=== PATIENT | female | born 1985 | race Caucasian/White ===

== ENCOUNTER 2016-12-10 19:14 | Emergency (ER) | payer BC ==
--- NOTE | 2016-12-10 20:13 | UC ---
Throat Pain/Nasal He HPI - HPI Summary HPI Summary: Patient presents with CC of feeling as though there is a hole in the right tonsil. She notes to tonsillar swelling, difficulty swallowing and pain x 2 days. She also states she saw some white discharge from the right tonsil today, but gargled with water and was able to clean it out effectively. Other symptoms include light drainage from the eyes in the morning without conjunctival injection. She is otherwise healthy, takes no medications and denies taking any medication for the pain. - History of Current Complaint Chief Complaint: UCGeneralIllness Stated Complaint: SORE THROAT/TONSIL SWOLLEN Time Seen by Provider: 12/10/16 19:44 Hx Obtained From: Patient Hx Last Menstrual Period: IUD ?: No Onset/Duration: Sudden Onset Severity: Moderate Pain Intensity: 8 Pain Scale Used: 0-10 Numeric Associated Signs & Symptoms: Positive: Dysphagia, FB Sensation - Epiglottits Risk Factors Epiglottis Risk Factors: Negative - Allergies/Home Medications Allergies/Adverse Reactions: Allergies Allergy/AdvReac Type Severity Reaction Status Date / Time Amoxicillin Allergy Hives Verified 12/10/16 19:22 Home Medications: Home Medications Amphetamine/Dextroamph ER(NF) [Adderal XR (NF)] 30 mg DAILY 12/10/16 [History Confirmed 12/10/16] carBAMazepine ER TAB(*) [Tegretol Xr TAB(*)] 200 mg BID 12/10/16 [History Confirmed 12/10/16] PMH/Surg Hx/FS Hx/Imm Hx Previously Healthy: Yes - Surgical History Surgical History: Yes Surgery Procedure, Year, and Place: [place] teeth - Family History Known Family History: Positive: Unknown - Social History Occupation: Employed Full-time Lives: With Family Alcohol Use: Occasionally Substance Use Type: None Smoking Status (MU): Never Smoked Tobacco - Immunization History Most Recent Influenza Vaccination: NONE Most Recent Tetanus Shot: UNK Most Recent Pneumonia Vaccination: N/A Review of Systems Constitutional: Negative Eyes: Negative ENT: Sore Throat, Other - tonsillar enlargement bilaterally Respiratory: Negative Cardiovascular: Negative Motor: Negative Neurovascular: Negative Musculoskeletal: Negative Psychological: Negative All Other Systems Reviewed And Are Negative: Yes Physical Exam Triage Information Reviewed: Yes Appearance: Well-Appearing, No Pain Distress, Well-Nourished Vital Signs: Initial Vital Signs Temp 98.5 F 12/10/16 19:25 Pulse 67 12/10/16 19:25 Resp 18 12/10/16 19:25 BP 142/73 12/10/16 19:25 Pulse Ox 100 12/10/16 19:25 Vital Signs Reviewed: Yes Eye Exam: Normal Eyes: Positive: Conjunctiva Clear ENT: Positive: Pharyngeal erythema, Tonsillar swelling Dental Exam: Normal Neck exam: Normal Neck: Positive: Nontender, No Lymphadenopathy Respiratory Exam: Normal Respiratory: Positive: Chest non-tender, Lungs clear Cardiovascular Exam: Normal Cardiovascular: Positive: RRR Musculoskeletal Exam: Normal Musculoskeletal: Positive: Strength Intact Neurological Exam: Normal Psychological: Positive: Normal Response To Family, Age Appropriate Behavior Skin Exam: Normal Throat Pain/Nasal Course/Dx - Course Course Of Treatment: bilateral tonsillar pain with swelling. worse on right side x 2 days. strep negative. dx as tonsillitis. Patient notes to difficulty swallowing, but denies airway compromise. Prednisone 60mg x 5 days given. Patient OK with discharge and will follow up as needed. - Differential Dx/Diagnosis Differential Diagnosis/HQI/PQRI: Laryngitis, Peritonsillar Abscess, Pharyngitis , Tonsillitis Provider Diagnoses: Tonsillitis Discharge - Discharge Plan Condition: Stable Disposition: HOME Prescriptions: predniSONE TAB* [Deltasone TAB*] 60 mg PO DAILY #5 tab Patient Education Materials: Tonsillitis (ED) Referrals: Marisa Muse NP [Primary Care Provider] - Additional Instructions: Follow up with PCP as needed. Take Prednisone for tonsillitis/pharyngitis as prescribed. How can I manage my symptoms? Use lozenges, ice, soft foods, or popsicles to soothe your throat. Drink juice, milk shakes, or soup if your throat is too sore to eat solid food. Drinking liquids can also help prevent dehydration. Gargle with salt water. Mix teaspoon salt in a 1 cup of warm water and gargle. This may help reduce swelling in your throat. Do not smoke. Nicotine and other chemicals in cigarettes and cigars can cause lung damage and make your symptoms worse. Ask your healthcare provider for information if you currently smoke and need help to quit. E-cigarettes or smokeless tobacco still contain nicotine. Talk to your healthcare provider before you use these products.
== END 2016-12-10 20:08 | disposition home or self-care (01) ==
LOC: UCCORT 19:14
DX: J03.90 Acute tonsillitis, unspecified (principal); Z88.1 Allergy status to other antibiotic agents
CPT/HCPCS: 87651; 99202; G0463

== ENCOUNTER 2018-04-25 10:08 | Emergency (ER) | payer BC ==
[2018-04-25 10:24] VITALS: BP 135/80
--- NOTE | 2018-04-25 12:05 | RAD ---
HISTORY: right arm pain s/p surgery COMPARISONS: None relevant TECHNIQUE: Multiple transverse and longitudinal ultrasound images were obtained of the right upper extremity from the level of the internal jugular vein inferiorly through to the infra-cubital veins using grayscale, color Doppler, and spectral Doppler imaging with and without compression and with augmentation. Comparison images were obtained of the contralateral internal jugular vein and subclavian vein. FINDINGS: VEINS: The venous system of the right upper extremity is compressible throughout its course, with normal flow on color Doppler imaging and normal response to augmentation on spectral Doppler imaging. SOFT TISSUES: Unremarkable. OTHER FINDINGS: None. IMPRESSION: NO RIGHT UPPER EXTREMITY DEEP VEIN THROMBOSIS
--- NOTE | 2018-04-25 13:00 | ED ---
Upper Extremity Pain - HPI Summary HPI Summary: Patient is a 32-year-old female presenting to the ED with severe right forearm pain extending up into the right upper arm 2 days. She states on Thursday she had a tonsillectomy and immediately following was feeling some pain and tenderness into the right forearm following a tonsillectomy, but rated the pain a 2/10. Yesterday she continued with the pain, but again this was improved well with Tylenol, ibuprofen and her prescribed oxycodone. However, this morning she awoke with severe pain to the right forearm which she rated a 10/10 , intermittent and throbbing. She has never injured the arm before. This is never to happen to her before. She denies any numbness or tingling into the hand, forearm, upper arm or shoulder. Denies any limitations with range of motion, flexion or extension. She states she is otherwise healthy, denies any fevers, sweats, chills and denies any color or temperature changes. - History of Current Complaint Chief Complaint: EDExtremityUpper Stated Complaint: ARM PAIN Time Seen by Provider: 04/25/18 11:20 Hx Obtained From: Patient Hx Last Menstrual Period: IUD Onset/Duration: Started Days Ago Timing: Constant Severity Initially: Moderate Severity Currently: Moderate Pain Location: Forearm Character: Aching, Spasmodic Aggravating Factor(s): Nothing Alleviating Factor(s): Nothing Associated Signs & Symptoms: Positive: Negative. Negative: Swelling, Redness, Bruising, Weakness, Numbness/Tingling, Neck Pain, Diaphoresis, Nausea, Vomiting Related History: Dominant Hand Right - Risk Factors Non-Orthopedic Risk Factor: Negative DVT Risk Factors: Negative Septic Arthritis Risk Factor: Negative Compartment Syndrome Risk Factors: Pain - Allergies/Home Medications Allergies/Adverse Reactions: Allergies Allergy/AdvReac Type Severity Reaction Status Date / Time amoxicillin Allergy Hives Verified 04/25/18 10:20 PMH/Surg Hx/FS Hx/Imm Hx Previously Healthy: Yes - Surgical History Surgery Procedure, Year, and Place: [place] teeth - Immunization History Hx Pertussis Vaccination: No Immunizations Up to Date: Yes Infectious Disease History: No Infectious Disease History: Denies: Traveled Outside the [place] in Last 30 Days - Family History Known Family History: Positive: Unknown - Social History Occupation: Employed Full-time Lives: With Family Alcohol Use: Occasionally Hx Substance Use: No Substance Use Type: Reports: None Hx Tobacco Use: No Smoking Status (MU): Never Smoked Tobacco Review of Systems Constitutional: Negative Negative: Fever, Chills, Fatigue, Skin Diaphoresis Negative: Palpitations, Chest Pain Negative: Shortness Of Breath, Cough Genitourinary: Negative Positive: no symptoms reported, see HPI Positive: Myalgia. Negative: Arthralgia Skin: Negative Neurological: Negative All Other Systems Reviewed And Are Negative: Yes Physical Exam Triage Information Reviewed: Yes Vital Signs On Initial Exam: Initial Vitals Temp Pulse Resp BP Pulse Ox 97.6 F 54 18 135/80 98 04/25/18 10:20 04/25/18 10:20 04/25/18 10:20 04/25/18 10:20 04/25/18 10:20 Vital Signs Reviewed: Yes Appearance: Positive: Well-Appearing, Well-Nourished Skin: Positive: Warm, Skin Color Reflects Adequate Perfusion Head/Face: Positive: Normal Head/Face Inspection Eyes: Positive: EOMI, KENDALL, Conjunctiva Clear Neck: Positive: Supple, No Lymphadenopathy Respiratory/Lung Sounds: Positive: Clear to Auscultation, Breath Sounds Present Cardiovascular: Positive: RRR, Pulses are Symmetrical in both Upper and Lower Extremities Musculoskeletal: Positive: Pain @ - right arm pain Neurological: Positive: Sensory/Motor Intact, Alert, Oriented to Person Place, Time, Speech Normal Psychiatric: Positive: Normal, Affect/Mood Appropriate AVPU Assessment: Alert Diagnostics - Vital Signs Vital Signs Temp Pulse Resp BP Pulse Ox 04/25/18 12:52 98.2 F 57 16 135/80 98 04/25/18 12:21 57 98 04/25/18 10:20 97.6 F 54 18 135/80 98 - Laboratory Lab Statement: Any lab studies that have been ordered have been reviewed, and results considered in the medical decision making process. Course/Dx - Course Course Of Treatment: During the course of treatment, the patient is evaluated for right forearm and upper arm pain which has been worsening 3 days. She was able to call her PCP who sent her to the ED for evaluation of a possible DVT. Ultrasound obtained and no DVT was found in the right upper extremity. On physical examination, there is no color or temperature changes. Patient is able to flex and extend without the shoulder joint, elbow joint, wrist joint, MCPs and throughout the fingertips. Denies any numbness or tingling. Good cap refill. Pulses +2 intact bilaterally. There is a small 3 cm in diameter ecchymosis without swelling over the dorsum of the right hand with a small puncture wound from where IV was placed. There is no evidence of lymphangitis, no redness or streaking up the arm. No warmth to the area. Patient states she is feeling much improved since she arrived, however endorses pain still at a 4/ 10. Patient appears comfortable. Discussed with patient strict return precautions and she will follow-up with her PCP. While no obvious evidence of superficial thrombophlebitis, this is in the differential. Also due to the intermittent nature of the pain, this could be a nerve pain. Likely to dissipate spontaneously, however she will follow-up as indicated. No evidence of infection or DVT. - Diagnoses Differential Diagnosis/HQI/PQRI: Positive: Strain, Sprain Provider Diagnoses: Nerve pain Discharge - Sign-Out/Discharge Documenting (check all that apply): Patient Departure - Discharge Plan Condition: Stable Disposition: HOME Referrals: Marisa Muse NP [Primary Care Provider] - Additional Instructions: Please follow up with your PCP for any continuing symptoms - you may always be seen again here in the ED Take more of your pain medications at home if necessary and continue on your ibuprofen and tylenol for inflammation Moist heat may help - Billing Disposition and Condition Condition: STABLE Disposition: Home
== END 2018-04-25 12:52 | disposition home or self-care (01) ==
LOC: ED 10:08
DX: G58.8 Other specified mononeuropathies (principal); Z88.0 Allergy status to penicillin
CPT/HCPCS: 99282